=== PATIENT | female | born 1980 | race Caucasian/White ===

== ENCOUNTER → 2024-10-04 14:39 | Outpatient (CLI) | payer OTHER, SELFPAY | LOC: PHYS 14:42 | PROVIDERS: Family Provider Nurse Practitioner Family; PCP Nurse Practitioner Family; Referring Provider Nurse Practitioner Family; Visit Provider Nurse Practitioner Family | DX: R20.0 Anesthesia of skin (principal) | CPT/HCPCS: 95886; 95913 ==